=== PATIENT | female | born 1990 | race Caucasian/White ===

== ENCOUNTER 2020-08-04 20:51 | Inpatient (IN) | payer MEDICAID ==
[~2020-08-04] VITALS: Ht 0 cm
[2020-08-04] MEDS ORDERED: LR 1,000 ML IV SCH (21:00)
[2020-08-04] MEDS ORDERED: CEFAZOLIN 2 GM IVPB PREMIX 50 ML IV ONE (21:00)
[2020-08-04 21:34] LABS: BASOPHILS % (AUTO) 0.1 % (0.0-2.0); EOSINOPHILS # (AUTO) 0.1 K/uL (0.0-0.4); EOSINOPHILS % (AUTO) 0.7 % (0.0-4.0); HEMATOCRIT 35.1 % (36-48); HEMOGLOBIN 11.9 g/dL (12.0-16.0); LYMPHOCYTES # (AUTO) 1.9 K/uL (1.0-5.5); LYMPHOCYTES % (AUTO) 19.8 % (20.5-51.5); MEAN CORPUSCULAR HEMOGLOBIN 30 pg (27-31); MEAN CORPUSCULAR HGB CONC 34 % (32-36); MEAN CORPUSCULAR VOLUME 90 fL (79.0-98.0); MONOCYTES # (AUTO) 0.5 K/uL (0.0-1.0); MONOCYTES % (AUTO) 4.9 % (1.7-9.3); NEUTROPHILS % (AUTO) 74.5 % (40.0-70.0); PLATELET COUNT (AUTO) 160 K/uL (130-430); RED BLOOD CELL COUNT(AUTO) 3.93 MIL/uL (4.2-6.2); RED CELL DISTRIBUTION WIDTH 14.1 % (9.0-15.0); WHITE BLOOD COUNT (AUTO) 9.5 K/uL (4.8-10.8)
[2020-08-05] MEDS ORDERED: ONDANSETRON HCL 4 MG/2 ML VIAL IVP PRN ×2 (06:30)
[2020-08-05] MEDS ORDERED: MORPHINE SULFATE 10MG/10ML PF AMP SP SCH (06:30)
[2020-08-05] MEDS ORDERED: DIPHENHYDRAMINE INJ 50 MG/ML VIAL IVP PRN (06:30)
[2020-08-05] MEDS ORDERED: fentaNYL CITRATE/PF 100 MCG/2 ML AMP IVP PRN ×2 (06:30)
[2020-08-05] MEDS ORDERED: KETOROLAC TROMETHAMINE 60 MG/2 ML VIAL IM PRN (06:30)
[2020-08-05] MEDS ORDERED: NALOXONE HCL 0.4 MG/ML AMP (NARCAN) IVP PRN ×3 (06:30→20:30)
[2020-08-05] MEDS ORDERED: NALBUPHINE HCL 10 MG/ML AMP IVP PRN (06:30)
[2020-08-05 07:56] VITALS: BP_SYST 122
[2020-08-05] MEDS ORDERED: OXYTOCIN/0.9 % SODIUM CHLORIDE 1,000 ML IV ONE ×2 (10:44→13:30)
[2020-08-05] MEDS ORDERED: OXYTOCIN/0.9 % SODIUM CHLORIDE 1,000 ML IV SCH (11:00)
[2020-08-05] MEDS ORDERED: CEFAZOLIN 1 GM IVPB PREMIX 50 ML IV ONE (13:30)
[2020-08-05] MEDS ORDERED: DOCUSATE SODIUM 100 MG CAPSULE PO PRN (13:30)
[2020-08-05] MEDS ORDERED: RHO(D) IMMUNE GLOBULIN/MALTOSE 1500 UNITS/1.3 ML (WINHRO) IM PRN (13:30)
[2020-08-05] MEDS ORDERED: BISACODYL 10 MG/SUPPOSITORY RC PRN (13:30)
[2020-08-05] MEDS ORDERED: SENNOSIDES/DOCUSATE SODIUM 1 TAB TABLET(SENOKOT-S) PO PRN (13:30)
[2020-08-05] MEDS ORDERED: MEASLES,MUMPS&RUBELLA VACC/PF 12500 UNIT/0.5 ML VIAL SUBQ PRN (13:30)
[2020-08-05] MEDS ORDERED: LR 1,000 ML IV SCH (13:30)
[2020-08-05] MEDS ORDERED: DIPH-TET-PERTUS Vaccine 0.5 ML VIAL (ADACEL) I.M. PRN (13:30)
[2020-08-05] MEDS ORDERED: LANOLIN 7 GM OINT. TP PRN (13:30)
[2020-08-05] MEDS ORDERED: SIMETHICONE 80 MG TAB.CHEW PO PRN (13:30)
[2020-08-05] MEDS ORDERED: CEFAZOLIN 1 GM IVPB PREMIX 50 ML IV SCH (18:00)
[2020-08-05] MEDS ORDERED: HYDROcodone/ACETAMIN 5-325 MG TAB (NORCO/ VICODIN) PO PRN (20:30)
[2020-08-06] MEDS: IBUPROFEN 600 MG TABLET PO SCH ×5 (00:03→23:46)
[2020-08-06] MEDS: OXYCODONE/ACETAMINOPHEN 5-325 TABLET PO PRN ×3 (04:00→20:40)
[2020-08-06 06:51] LABS: BASOPHILS % (AUTO) 0.3 % (0.0-2.0); EOSINOPHILS % (AUTO) 0.4 % (0.0-4.0); HEMATOCRIT 31.6 % (36-48); HEMOGLOBIN 10.8 g/dL (12.0-16.0); LYMPHOCYTES # (AUTO) 1.3 K/uL (1.0-5.5); LYMPHOCYTES % (AUTO) 14.1 % (20.5-51.5); MEAN CORPUSCULAR HEMOGLOBIN 31 pg (27-31); MEAN CORPUSCULAR HGB CONC 34 % (32-36); MEAN CORPUSCULAR VOLUME 90 fL (79.0-98.0); MONOCYTES # (AUTO) 0.5 K/uL (0.0-1.0); MONOCYTES % (AUTO) 5.4 % (1.7-9.3); NEUTROPHILS # (AUTO) 7.2 K/uL (1.8-7.7); NEUTROPHILS % (AUTO) 79.8 % (40.0-70.0); PLATELET COUNT (AUTO) 148 K/uL (130-430); RED BLOOD CELL COUNT(AUTO) 3.52 MIL/uL (4.2-6.2); RED CELL DISTRIBUTION WIDTH 13.8 % (9.0-15.0)
[2020-08-06] MEDS: SIMETHICONE 80 MG TAB.CHEW PO PRN (13:45)
[2020-08-06] MEDS: DOCUSATE SODIUM 100 MG CAPSULE PO PRN (18:04)
[2020-08-07] MEDS: OXYCODONE/ACETAMINOPHEN 5-325 TABLET PO PRN ×3 (02:57→17:21)
[2020-08-07] MEDS: IBUPROFEN 600 MG TABLET PO SCH ×2 (05:40→11:34)
[2020-08-07] MEDS: SIMETHICONE 80 MG TAB.CHEW PO PRN (08:51)
[2020-08-07] MEDS ORDERED: DOCUSATE SODIUM 100 MG CAPSULE PO ONE (12:10)
[2020-08-07] MEDS: DOCUSATE SODIUM 100 MG CAPSULE PO PRN (12:11)
== END 2020-08-07 18:00 | disposition home or self-care (01) | DRG 540 ==
LOC: SPU 20:51
PROVIDERS: ADMIT Obstetrics & Gynecology; ATTEND Obstetrics & Gynecology
PROC: 10D00Z1 Extraction of Products of Conception, Low, Open Approach (ICD-10-PCS; principal; 2020-08-05 08:00)
DX: O36.63X0 Maternal care for excessive fetal growth, third trimester, not applicable or unspecified (principal); Z37.0 Single live birth; Z3A.00 Weeks of gestation of pregnancy not specified
CPT/HCPCS: 36415; 85025; 86592; 86886; 86900; 86901; 90715; J0690; J2274; J2300; J2405; J2590; J7120